=== PATIENT | male | born 1980 | race African-American/Black ===

== ENCOUNTER 2017-07-10 22:03 | Emergency (ER) | payer SELFPAY ==
[~2017-07-10] VITALS: Ht 180.3 cm; Wt 85.0 kg
[2017-07-10 22:07] VITALS: BP_SYST 199; BP_SYST 206; BP_DIAS 115; BP_DIAS 124; PULSE 94; RESP 18; TEMP 99.3; O2SAT 98
[2017-07-10 23:32] VITALS: BP 197/116; PULSE 79; RESP 16; O2SAT 97
--- NOTE | 2017-07-10 23:34 | PD ---
HPI Chief Complaint: Hypertension Time Seen by Provider: 23:29 Travel History International Travel<30 days: No Contact w/Intl Traveler<30days: No Traveled to known affect area: No History of Present Illness HPI The patient is a 36 year old male who presents to the [facility] emergency department with a history of generalized weakness, chills, fever, and headache that lasted for 3 hours yesterday. He last took Tylenol at 6AM. He has had nasal congestion that began yesterday. He denies having any cough or nasal discharge. He has had urinary frequency and burning with urination since yesterday. He denies having any penile discharge, scrotal pain or swelling. He denies having any He has intermittent sharp sticking sensation in the left side of the chest that began a week ago. He denies having any currently. The patient reports that he does have a history of high blood pressure, however he stopped taking blood pressure medications due to side effects of erectile dysfunction. He reports that that he has been taking garlic. The patient reports that his MAXIMUM TEMPERATURE at home for fever was 100.4. The patient reports the headache overlying his forehead. On review of systems otherwise, he denies having any chest congestion, neck stiffness, shortness of breath, abdominal pain, vomiting, diarrhea, or other neurologic symptoms. PCP: in [place] Past Medical History Narrative Medical The patient's past medical history is significant for hypertension. Diminished Hearing: No Hypertension: Yes Tetanus Vaccination: Unknown Influenza Vaccination: No Past Surgical History Narrative Surgical The patient's past medical history is significant for hydrocele repair as a child. Other Surgery: Yes ( [facility]) Social History Alcohol Use: Yes ([facility]) Tobacco Use: No Substance Use: No Allergies-Medications (Allergen,Severity, Reaction): Coded Allergies: No Known Allergies (Unverified , 07/10/17) Reported Meds & Prescriptions Reported Meds & Active Scripts Active Lisinopril-Hctz 20-12.5 Mg Tab 1 Tab PO DAILY Narrative Medication tylenol, ibuprofen, garlic Review of Systems Except as stated in HPI: all other systems reviewed are Neg General / Constitutional: Positive: Fever, Chills Eyes: No: Visual changes HENT: Positive: Headaches, No: Neck Stiffness Cardiovascular: No: Chest Pain or Discomfort Respiratory: No: Shortness of Breath Gastrointestinal: No: Abdominal Pain Genitourinary: Positive: Frequency, Dysuria, No: Urgency Musculoskeletal: No: Pain Skin: No Rash Neurologic: Positive: Headache, No: Weakness, Focal Abnormalities, Change in Mentation, Slurred Speech, Sensory Disturbance Psychiatric: No: Depression Endocrine: No: Polydipsia Hematologic/Lymphatic: No: Easy Bruising Physical Exam Narrative General: The patient is well-developed well-nourished male. Head and Neck exam: Head is normocephalic atraumatic. Eyes: EOMI, pupils are equal round and reactive to light. Nose: Midline septum with pink mucous membranes. Sinuses: No sinus tenderness on palpation. Mouth: Dentition unremarkable. Moist mucus membranes. Posterior oropharynx is not erythematous. No tonsillar hypertrophy. Uvula midline. Airway patent. Neck: No palpable lymphadenopathy. No nuchal rigidity. No thyromegaly. Negative Brudzinski. Cardiovascular: Regular rate and rhythm without murmurs, gallops, or rubs. Lungs: Clear to auscultation bilaterally. No wheezes, rhonchi, or rales. Abdomen: Soft, without tenderness to palpation in all 4 quadrants of the abdomen. No guarding, rebound, or rigidity. Normal bowel sounds are audible. No tenderness on palpation of McBurney's point. Extremities: No clubbing, cyanosis, or edema. 2+ pulses in all 4 extremities. No calf tenderness on palpation. Back: No spinous process tenderness to palpation. No costovertebral angle tenderness to palpation. Neurologic Exam: Grossly nonfocal. Skin Exam: No rash noted. Intact skin that is warm and dry. Data Data Last Documented VS Vital Signs Date Time Temp Pulse Resp B/P (MAP) Pulse Ox O2 Delivery O2 Flow Rate FiO2 07/11/17 02:51 07/11/17 02:29 78 16 97 Room Air 07/10/17 22:07 99.3 Orders Orders Electrocardiogram (07/11/17 00:32) Complete Blood Count With Diff (07/11/17 00:32) Comprehensive Metabolic Panel (07/11/17 00:32) Creatine Kinase (Cpk) (07/11/17 00:32) Ckmb (Isoenzyme) Profile (07/11/17 00:32) Troponin I (07/11/17 00:32) B-Type Natriuretic Peptide (07/11/17 00:32) C-Reactive Protein (Crp) (07/11/17 00:32) Lipase (07/11/17 00:32) Urinalysis - C+S If Indicated (07/11/17 00:32) Magnesium (Mg) (07/11/17 00:32) Chest, Single Ap (07/11/17 00:32) Ct Brain W/O Iv Contrast(Rout) (07/11/17 00:32) Iv Access Insert/Monitor (07/11/17 00:32) Ecg Monitoring (07/11/17 00:32) Oximetry (07/11/17 00:32) Labetalol Inj (Trandate Inj) (07/11/17 00:45) CKMB (07/11/17 00:55) CKMB% (07/11/17 00:55) Ed Discharge Order (07/11/17 02:37) Labs Laboratory Tests Test 07/11/17 00:55 White Blood Count 7.7 TH/MM3 Red Blood Count 4.91 MIL/MM3 Hemoglobin 14.4 GM/DL Hematocrit 43.4 % Mean Corpuscular Volume 88.4 FL Mean Corpuscular Hemoglobin 29.4 PG Mean Corpuscular Hemoglobin Concent 33.2 % Red Cell Distribution Width 12.1 % Platelet Count 166 TH/MM3 Mean Platelet Volume 9.6 FL Neutrophils (%) (Auto) 67.3 % Lymphocytes (%) (Auto) 20.8 % Monocytes (%) (Auto) 9.3 % Eosinophils (%) (Auto) 2.1 % Basophils (%) (Auto) 0.5 % Neutrophils # (Auto) 5.2 TH/MM3 Lymphocytes # (Auto) 1.6 TH/MM3 Monocytes # (Auto) 0.7 TH/MM3 Eosinophils # (Auto) 0.2 TH/MM3 Basophils # (Auto) 0.0 TH/MM3 CBC Comment DIFF FINAL Differential Comment Urine Color YELLOW Urine Turbidity CLEAR Urine pH 5.5 Urine Specific [place] 1.015 Urine Protein NEG mg/dL Urine Glucose (UA) NEG mg/dL Urine Ketones NEG mg/dL Urine Occult Blood NEG Urine Nitrite NEG Urine Bilirubin NEG Urine Urobilinogen LESS THAN 2.0 MG/DL Urine Leukocyte Esterase NEG Urine RBC 1 /hpf Urine WBC LESS THAN 1 /hpf Urine Mucus FEW /lpf Microscopic Urinalysis Comment CULT NOT INDICATED Blood Urea Nitrogen 14 MG/DL Creatinine 1.29 MG/DL Random Glucose 90 MG/DL Total Protein 8.0 GM/DL Albumin 3.8 GM/DL Calcium Level 8.6 MG/DL Magnesium Level 2.0 MG/DL Alkaline Phosphatase 70 U/L Aspartate Amino Transf (AST/SGOT) 31 U/L Alanine Aminotransferase (ALT/SGPT) 43 U/L Total Bilirubin 0.4 MG/DL Sodium Level 137 MEQ/L Potassium Level 3.7 MEQ/L Chloride Level 104 MEQ/L Carbon Dioxide Level 26.5 MEQ/L Anion Gap 7 MEQ/L Estimat Glomerular Filtration Rate 76 ML/MIN Total Creatine Kinase 249 U/L Creatine Kinase MB 0.6 NG/ML Troponin I LESS THAN 0.02 NG/ML C-Reactive Protein 5.29 MG/DL B-Type Natriuretic Peptide 6 PG/ML Lipase 297 U/L [facility] Medical Decision Making Medical Screen Exam Complete: Yes Emergency Medical Condition: Yes Medical Record Reviewed: Yes Interpretation(s) Last Impressions Head CT 07/11/1731 Signed Impressions: Service Date/Time: Tuesday, July 11, 2017 01:27 - CONCLUSION: 1. No evidence of acute intracranial pathology. No masses are identified. Vernon Villarreal MD Chest X-Ray 07/11/1731 Signed Impressions: Service Date/Time: Tuesday, July 11, 2017 00:36 - CONCLUSION: 1. No acute cardiopulmonary disease. Vernon Villarreal MD Differential Diagnosis Intracranial hemorrhage, versus headache related to uncontrolled hypertension, versus meningitis, versus encephalitis, versus viral syndrome Narrative Course During the course of the patients emergency department visit, the patients history, examination, and differential diagnosis were reviewed with the patient. The patient was placed on a cardiac rehabilitation program director with oximetry and frequent blood pressure monitoring. The patient had IV access obtained and blood work sent for analysis. The patient had an ECG done on arrival that shows a sinus rhythm, heart rate is 73, QRS duration 87 ms, QTc 385 ms, voltage criteria for LVH is present. J-point elevation is present early repolarization. No other acute ST segment changes. The patient was initially provided labetalol 10 mg IV The patients laboratory studies were reviewed and remarkable for a white count of 7.7, hemoglobin 14.4, platelets 166 with 9.3 monocytes. CMP is remarkable for a GFR of 76, CPK 249, urinalysis is unremarkable, C-reactive protein is 5.29 , troponin I less than 0.02. BNP 6, lipase 297 Radiology studies were reviewed and remarkable for a chest x-ray that shows no acute cardiopulmonary disease. CT scan of the brain shows no acute abnormality. The patient will be discharged home with a blood pressure medication. The patient was instructed regarding the importance of taking a blood pressure medication prevent further risk for coronary artery disease and cerebrovascular disease as well as kidney damage. The patient on reexamination prior to discharge reportedly was feeling improved. The patient is resting comfortably and feels better, is alert and in no distress. The patients results and examination findings were discussed with the patient. The repeat examination is unremarkable and benign. The history, exam, diagnostic testing, and current condition do not suggest any significant pathology to warrant further testing, continued ED treatment, admission, or surgical evaluation at this point. The vital signs have been stable. The patient does not have uncontrollable pain, intractable vomiting, or other significant symptoms. The patient's condition is stable and appropriate for discharge. The patient will pursue further outpatient evaluation with a primary care physician or other designated or consulting physician as indicated in the discharge instructions. The patient expressed understanding and was agreeable with this plan. Diagnosis Primary Impression: Uncontrolled hypertension Additional Impressions: Headache Qualified Codes: R51 - Headache Upper respiratory infection Qualified Codes: J06.9 - Acute upper respiratory infection, unspecified; B97.89 - Other viral agents as the cause of diseases classified elsewhere Referrals: Primary Care Physician 3 days Patient Instructions: General Instructions, Hypertension (ED), Upper Respiratory Infection (ED) Med/Other Pt SpecificInfo: Prescription(s) given Scripts Lisinopril-Hctz (Lisinopril-Hctz) 20-12.5 Mg Tab 1 TAB PO DAILY for Blood Pressure Management, #30 TAB 0 Refills Prov: Mercedes Hyatt MD 07/11/17 Disposition: 01 DISCHARGE HOME Condition: Stable Mercedes Hyatt MD Jul 10, 2017 23:34
[2017-07-11] MEDS ORDERED: LABETALOL HCL 100 MG/20 ML VIAL IV PUSH ONE (00:45)
[2017-07-11 01:00] VITALS: BP 205/122; PULSE 78; RESP 16; O2SAT 100
--- NOTE | 2017-07-11 01:01 | RADRPT ---
EXAM DATE/TIME: 07/11/2017 00:36 [facility] COMPARISON: No previous studies available for comparison. INDICATIONS : Short of breath. MEDICAL HISTORY : Hypertension. SURGICAL HISTORY : None. ENCOUNTER: Initial ACUITY: 1 day PAIN SCORE: 0/10 LOCATION: Bilateral chest FINDINGS: A single view of the chest demonstrates the lungs to be symmetrically aerated without evidence of mas s, infiltrate or effusion. The cardiomediastinal contours are unremarkable. Osseous structures are intact. CONCLUSION: 1. No acute cardiopulmonary disease. Vernon Villarreal MD on July 11, 2017 at 0:57 Board Certified Radiologist. This report was verified electronically.
[2017-07-11 01:03] VITALS: O2SAT 100
[2017-07-11 01:15] LABS: AUTOMATED NEUTROPHIL # 5.2 TH/MM3 (1.8-7.7); BASOPHIL % 0.5 % (0.0-2.0); EOSINOPHIL # 0.2 TH/MM3 (0-0.4); EOSINOPHIL % 2.1 % (0.0-4.0); HEMATOCRIT 43.4 % (39.0-51.0); HEMO FLAGS DIFF FINAL; LYMPH % 20.8 % (9.0-44.0); LYMPHOCYTE # 1.6 TH/MM3 (1.0-4.8); MEAN CELL VOLUME 88.4 FL (80.0-100.0); MEAN CORPUSCULAR HEMOGLOBIN 29.4 PG (27.0-34.0); MEAN CORPUSCULAR HGB CONC 33.2 % (32.0-36.0); MONO % 9.3 % (0.0-8.0); NEUT % 67.3 % (16.0-70.0); PLATELET COUNT 166 TH/MM3 (150-450); RED BLOOD COUNT 4.91 MIL/MM3 (4.50-5.90); RED CELL DISTRIBUTION WIDTH 12.1 % (11.6-17.2); WHITE BLOOD COUNT 7.7 TH/MM3 (4.0-11.0)
[2017-07-11 01:22] LABS: BLOOD, URINE NEG (NEG); GLUCOSE,URINE NEG (NEG); KETONE, URINE NEG (NEG); MUCUS URINE FEW /lpf (OCC); NITRITE,URINE NEG (NEG); PH, URINE 5.5 (5.0-8.5); URINE COLOR YELLOW (YELLW/STRAW)
[2017-07-11 01:25] LABS: COMMENT (UR) CULT NOT INDICATED; CULTURE IF INDICATED CULT NOT INDICATED
--- NOTE | 2017-07-11 01:33 | RADRPT ---
EXAM DATE/TIME: 07/11/2017 01:27 [facility] COMPARISON: No previous studies available for comparison. INDICATIONS : Headaches with high blood pressure. RADIATION DOSE: 35.14 CTDIvol (mGy) MEDICAL HISTORY : Hypertension. SURGICAL HISTORY : None. ENCOUNTER: Initial ACUITY: 1 day PAIN SCALE: 7/10 LOCATION: Bilateral cranial TECHNIQUE: Multiple contiguous axial images were obtained of the head. Using automated exposure control and adj ustment of the mA and/or kV according to patient size, radiation dose was kept as low as reasonably a chievable to obtain optimal diagnostic quality images. DICOM format image data is available electro nically for review and comparison. FINDINGS: CEREBRUM: The ventricles are normal for age. No evidence of midline shift, mass lesion, hemorrhage or acute in farction. No extra-axial fluid collections are seen. POSTERIOR FOSSA: The cerebellum and brainstem are intact. The 4th ventricle is midline. The cerebellopontine angle i s unremarkable. EXTRACRANIAL: The visualized portion of the orbits is intact. SKULL: The calvaria is intact. No evidence of skull fracture. CONCLUSION: 1. No evidence of acute intracranial pathology. No masses are identified. Vernon Villarreal MD on July 11, 2017 at 1:31 Board Certified Radiologist. This report was verified electronically.
[2017-07-11 01:42] LABS: ALT (GPT) 43 U/L (12-78); ANION GAP 7 MEQ/L (5-15); AST (GOT) 31 U/L (15-37); BICARBONATE 26.5 MEQ/L (21.0-32.0); BLOOD UREA NITROGEN 14 MG/DL (7-18); CHLORIDE 104 MEQ/L (98-107); GLOMERULAR FILTRATION RATE 76 ML/MIN (>89); POTASSIUM 3.7 MEQ/L (3.5-5.1); SODIUM (NA) 137 MEQ/L (136-145)
[2017-07-11 01:43] VITALS: BP 195/120; PULSE 84; RESP 16; O2SAT 98
[2017-07-11 01:45] LABS: ALKALINE PHOSPHATASE 70 U/L (45-117); CREATINE KINASE 249 U/L (39-308); TOTAL BILIRUBIN ADULT 0.4 MG/DL (0.2-1.0)
[2017-07-11 01:57] LABS: CKMB 0.6 NG/ML (0.5-3.6)
[2017-07-11 02:29] VITALS: BP 176/110; PULSE 78; RESP 16; O2SAT 97
[2017-07-11] MEDS ORDERED: LISI20TA PO (02:37)
[2017-07-11 02:43] VITALS: BP 172/99
--- NOTE | 2017-07-11 09:36 | EKG ---
Date Performed: 07/11/2017 Time Performed: 00:56:05 PTAGE: 36 years EKG: Sinus rhythm MINIMAL VOLTAGE CRITERIA FOR LVH, CONSIDER NORMAL VARIANT ST ELEVATION, PROBABLY EARLY REPOLARIZATIO N BORDERLINE ECG NO PREVIOUS TRACING DOCTOR: Arron Mckeon Interpretating Date/Time 07/11/2017 09:33:32
== END 2017-07-11 02:58 | disposition home or self-care (01) ==
LOC: NEPE 22:03
DX: I10 Essential (primary) hypertension (principal); R51 Headache; J06.9 Acute upper respiratory infection, unspecified; Z79.899 Other long term (current) drug therapy
CPT/HCPCS: 70450; 71010; 80053; 81001; 82550; 82552; 83690; 83735; 83880; 84484; 85025; 86140; 93005; 96374

== ENCOUNTER 2017-08-12 15:56 | Emergency (ER) | payer SELFPAY ==
[~2017-08-12] VITALS: Ht 180.3 cm; Wt 86.0 kg
[~2017-08-12 15:56] MED LIST: LISI20TA PO
[2017-08-12 15:57] VITALS: BP 174/108; PULSE 76; RESP 14; TEMP 98.5; O2SAT 98
[2017-08-12 16:22] VITALS: BP 166/102; PULSE 73; RESP 18; O2SAT 100
[2017-08-12] MEDS ORDERED: LISINOPRIL 20 MG TAB PO ONE (16:30)
[2017-08-12] MEDS ORDERED: HYDROCHLOROTHIAZIDE 12.5 MG CAP PO ONE (16:30)
[2017-08-12] MEDS ORDERED: HYDR12.57 PO (16:31)
[2017-08-12] MEDS ORDERED: LISI-515 PO (16:31)
--- NOTE | 2017-08-12 16:34 | PD ---
HPI Chief Complaint: Hypertension Time Seen by Provider: 16:13 Travel History International Travel<30 days: No Contact w/Intl Traveler<30days: No Traveled to known affect area: No History of Present Illness HPI 36-year-old [facility] male presents to emergency department with recurrent hypertension with mild headache. Patient states he was seen here partially 5 weeks ago and diagnosed with hypertension given lisinopril 20mg/ hydrochlorothiazide 12.5 mg tablets with good response. He states he ran out one week ago and his blood pressure has increased. He came into the emergency department today as he has a mild headache. He denies any other significant neurological symptoms. He is currently here from [place] and should return here in 4-5 weeks. He is here visiting family. He has no known drug allergies. PFSH Past Medical History Cardiovascular Problems: Yes Diminished Hearing: No Hypertension: Yes Immunizations Current: No Tetanus Vaccination: Unknown Influenza Vaccination: No Past Surgical History Other Surgery: Yes ( ) Social History Alcohol Use: Yes (OCC) Tobacco Use: No Substance Use: No Allergies-Medications (Allergen,Severity, Reaction): Coded Allergies: No Known Allergies (Unverified , 08/12/17) Reported Meds & Prescriptions Reported Meds & Active Scripts Active Hydrochlorothiazide 12.5 Mg Cap 12.5 Mg PO DAILY Lisinopril 20 Mg Tab 20 Mg PO DAILY Lisinopril-Hctz 20-12.5 Mg Tab 1 Tab PO DAILY Review of Systems Except as stated in HPI: all other systems reviewed are Neg General / Constitutional: No: Fever Eyes: No: Visual changes HENT: Positive: Headaches (see history of present illness), No: Sore Throat, Rhinitis ( see history of present illness), Rhinorrhea, Congestion, Nosebleed, Neck Stiffness, Neck Pain, Dental Difficulties, Earache Cardiovascular: Positive: Other, No: Chest Pain or Discomfort Respiratory: No: Shortness of Breath Gastrointestinal: No: Abdominal Pain Genitourinary: No: Dysuria Musculoskeletal: No: Pain Skin: No Rash Neurologic: No: Weakness Psychiatric: No: Depression Endocrine: No: Polydipsia Hematologic/Lymphatic: No: Easy Bruising Physical Exam Narrative GENERAL: Patient appears in no acute distress. SKIN: Warm and dry. Normal color. Normal turgor. HEAD: Atraumatic. Normocephalic. EYES: Pupils equal and round. No scleral icterus. No injection or drainage. ENT: No nasal bleeding or discharge. Mucous membranes pink and moist. NECK: Trachea midline. No JVD. Supple and nontender. CARDIOVASCULAR: Regular rate and rhythm. No murmurs gallops or rubs. RESPIRATORY: No accessory muscle use. Clear to auscultation. Breath sounds equal bilaterally. MUSCULOSKELETAL: Extremities without clubbing, cyanosis, or edema. No obvious deformities. NEUROLOGICAL: Awake and alert. No obvious cranial nerve deficits. Motor grossly within normal limits. Five out of 5 muscle strength in the arms and legs. Normal speech. PSYCHIATRIC: Appropriate mood and affect; insight and judgment normal. Data Data Last Documented VS Vital Signs Date Time Temp Pulse Resp B/P (MAP) Pulse Ox O2 Delivery O2 Flow Rate FiO2 08/12/17 17:36 75 18 174/99 (124) 100 08/12/17 16:10 Room Air 08/12/17 15:57 98.5 Orders Orders Lisinopril (Prinivil) (08/12/17 16:30) Hydrochlorothiazide (Microzide) (08/12/17 16:30) Ed Discharge Order (08/12/17 16:34) MDM Medical Decision Making Medical Screen Exam Complete: Yes Emergency Medical Condition: Yes Differential Diagnosis Hypertension. Need for medication. Need for refill. Narrative Course Patient is medically stable at time of exam. Pressure slightly elevated 163/110. Patient is given lisinopril 20 mg by mouth now. Patient is given hydrochlorothiazide 12.5 mg by mouth now. Patient will be continued on lisinopril 20 daily #30 with 1 refill. Patient will be continued on hydrochlorothiazide 12.5 mg daily #30 with 1 refill. Patient will follow with his primary care physician in [place] upon return. Patient can follow-up sooner as needed. Diagnosis Primary Impression: Medication refill Referrals: Primary Care Physician Patient Instructions: 3 Gram Sodium Diet (DC), General Instructions Additional Instructions: Patient is given lisinopril 20 mg by mouth now. Patient is given hydrochlorothiazide 12.5 mg by mouth now. Patient will be continued on lisinopril 20 daily #30 with 1 refill. Patient will be continued on hydrochlorothiazide 12.5 mg daily #30 with 1 refill. Patient will follow with his primary care physician in [place] upon return. Patient can follow-up sooner as needed. Med/Other Pt SpecificInfo: Prescription(s) given Scripts Hydrochlorothiazide (Hydrochlorothiazide) 12.5 Mg Cap 12.5 MG PO DAILY, #30 CAP 1 Refill Prov: Laila Dai DO 08/12/17 Lisinopril (Lisinopril) 20 Mg Tab 20 MG PO DAILY, #30 TAB 1 Refill Prov: Laila Dai DO 08/12/17 Disposition: 01 DISCHARGE HOME Condition: Stable Gorge Jeter Aug 12, 2017 16:34
[2017-08-12 17:36] VITALS: BP 174/99
== END 2017-08-12 17:37 | disposition home or self-care (01) ==
LOC: NEPD 15:56
DX: Z76.0 Encounter for issue of repeat prescription (principal); R51 Headache; I10 Essential (primary) hypertension; Z79.899 Other long term (current) drug therapy
CPT/HCPCS: 99284

== ENCOUNTER 2017-10-18 10:24 | Emergency (ER) | payer SELFPAY ==
[~2017-10-18 10:24] MED LIST changes: +HYDR12.57 PO; +LISI-515 PO
[2017-10-18 10:25] VITALS: BP 157/94; PULSE 65; RESP 12; TEMP 98.5; O2SAT 100
[2017-10-18] MEDS ORDERED: LISI20TA PO (11:16)
--- NOTE | 2017-10-18 11:17 | PD ---
HPI Chief Complaint: Medication Refill Request Time Seen by Provider: 11:11 Travel History International Travel<30 days: No Contact w/Intl Traveler<30days: No Traveled to known affect area: No History of Present Illness HPI 37-year-old male presents to the emergency department requesting medication refill on hydrochlorothiazide 12.5 mg and lisinopril 20 mg daily. Last took his blood pressure medication 3-4 days ago. He denies headache, chest pain, shortness of breath, dizziness, lightheadedness, syncope, nausea, vomiting, change in vision. Symptoms are mild in severity. No known aggravating or relieving factors. No primary care provider. No known allergies. History of hypertension. Has no medical complaints. No other modifying factors or associated signs and symptoms. PFSH Past Medical History Cardiovascular Problems: Yes Diminished Hearing: No Hypertension: Yes Immunizations Current: No Past Surgical History Other Surgery: Yes ( ) Social History Alcohol Use: Yes (OCC) Tobacco Use: No Substance Use: No Allergies-Medications (Allergen,Severity, Reaction): Coded Allergies: No Known Allergies (Unverified , 10/18/17) Reported Meds & Prescriptions Reported Meds & Active Scripts Active Lisinopril-Hctz 20-12.5 Mg Tab 1 Tab PO DAILY Hydrochlorothiazide 12.5 Mg Cap 12.5 Mg PO DAILY Lisinopril 20 Mg Tab 20 Mg PO DAILY Review of Systems Except as stated in HPI: all other systems reviewed are Neg Physical Exam Narrative GENERAL: Well-nourished, well-developed black male patient, in no acute distress SKIN: Warm and dry. HEAD: Atraumatic. Normocephalic. EYES: Pupils equal and round. No scleral icterus. No injection or drainage. ENT: Mucosa pink and moist. Airway patent. NECK: Trachea midline. CARDIOVASCULAR: Regular rate. RESPIRATORY: No accessory muscle use. GASTROINTESTINAL: Flat. MUSCULOSKELETAL: No obvious deformities. No clubbing. No cyanosis. No edema. NEUROLOGICAL: Awake and alert. Oriented 3. No obvious cranial nerve deficits. Motor grossly within normal limits. Normal speech. PSYCHIATRIC: Appropriate mood and affect; insight and judgment normal. Data Data Last Documented VS Vital Signs Date Time Temp Pulse Resp B/P (MAP) Pulse Ox O2 Delivery O2 Flow Rate FiO2 10/18/17 10:25 98.5 65 12 157/94 (115) 100 Orders Orders Ed Discharge Order (2/15/18 11:17) [facility] Medical Decision Making Medical Screen Exam Complete: Yes Emergency Medical Condition: Yes Medical Record Reviewed: Yes Differential Diagnosis Medication refill, chronic hypertension, high blood pressure, medical clearance Narrative Course 37-year-old male presents for medication refill on hydrochlorothiazide and lisinopril. Has been out of his medication for 3-4 days. No primary care provider. Patient is asymptomatic. Hydrochlorothiazide/lisinopril 12.5/20 mg prescribed for home. Patient provided information for [facility] clinic for follow-up. Instructed patient to follow up with primary care provider. Patient verbalizes understanding and agreement with treatment plan. Patient is medically cleared and stable for discharge. Discussed reasons to return to the emergency department. Patient agrees with treatment plan. The patients vital signs are stable and the patient is stable for outpatient follow-up and treatment. Patient discharged home, stable and in no acute distress. Diagnosis Primary Impression: Medication refill Referrals: [facility] Primary Care Physician Patient Instructions: Chronic Hypertension (ED), General Instructions, Medication Refill, ED Additional Instructions: Take blood pressure medications as prescribed Follow-up with your primary care provider Return to the emergency department immediately with symptoms of increased blood pressure, taken only if you are experiencing severe chest pain, severe headache , confusion, blurred vision, nausea and vomiting, shortness of breath, seizures Med/Other Pt SpecificInfo: Prescription(s) given Scripts Lisinopril-Hctz (Lisinopril-Hctz) 20-12.5 Mg Tab 1 TAB PO DAILY for Blood Pressure Management, #30 TAB 0 Refills Prov: Flor Bustillos 10/18/17 Disposition: 01 DISCHARGE HOME Condition: Stable Flor Bustillos Oct 18, 2017 11:17
== END 2017-10-18 11:29 | disposition home or self-care (01) ==
LOC: NEPD 10:24
DX: I10 Essential (primary) hypertension (principal); Z76.0 Encounter for issue of repeat prescription
CPT/HCPCS: 99281